=== PATIENT | female | born 1955 | race Two or more races ===

== ENCOUNTER 2021-12-24 16:21 | Emergency (ER) | payer OTHER ==
[~2021-12-24] VITALS: Ht 157.5 cm; Wt 61.2 kg
[2021-12-24] MEDS ORDERED: ZESTRIL5 MG PO (16:40)
[2021-12-24] MEDS ORDERED: DILTIAZEM ER120 M2 PO (16:40)
[2021-12-24] MEDS ORDERED: LEVOTHYROXINE88 MC1 PO (16:41)
== END 2021-12-24 19:31 | disposition home or self-care (01) ==
LOC: ER 16:21
DX: L30.9 Dermatitis, unspecified (principal); Z86.79 Personal history of other diseases of the circulatory system